=== PATIENT | female | born 1995 | race Caucasian/White ===

== ENCOUNTER 2017-01-13 22:41 | Emergency (ER) | payer OTHER ==
[~2017-01-13] VITALS: Wt 45.5 kg
[2017-01-14] MEDS ORDERED: KETOROLAC 30 MG INJ IV STA (00:14)
[2017-01-14] MEDS ORDERED: ONDANSETRON 4 MG INJ IV STA (00:14)
[2017-01-14] MEDS ORDERED: FAMOTIDINE 20 MG INJ IV STA (00:14)
[2017-01-14] MEDS ORDERED: SOD CHLORIDE 0.9% 1,000 ML IV STA (00:14)
[2017-01-14 00:42] LABS: URINE BLOOD (Dip) POC Negative (NEGATIVE)
[2017-01-14 00:54] LABS: ADD SCAN DIFF NO
[2017-01-14 00:56] LABS: ABNORMAL IP MESSAGE 1; HEMOGLOBIN 16.3 g/dl (12.0-16.0); MEAN CORPUSCULAR HEMOGLOBIN 29.2 pg (29.0-33.0); MEAN CORPUSCULAR VOLUME 85.9 fl (72.0-104.0); MEAN PLATELET VOLUME 10.9 fl (7.4-10.4); PLATELET COUNT 321 10^3/UL (140-415); RED BLOOD COUNT 5.59 10^6/ul (4.20-5.40); RED CELL DISTRIBUTION WIDTH 12.1 % (11.5-14.5); WHITE BLOOD COUNT 25.4 10^3/ul (4.8-10.8)
[2017-01-14 01:14] LABS: ALBUMIN 5.4 g/dl (3.3-4.9); ALBUMIN/GLOBULIN RATIO 1.22; BILIRUBIN,INDIRECT 1.8 mg/dl (0-1.1); BILIRUBIN,TOTAL 1.8 mg/dl (0.2-1.3); CALCIUM 10.4 mg/dl (8.4-10.2); CREATININE 0.8 mg/dl (0.44-1.00); POTASSIUM 4.1 mmol/L (3.5-5.1); TOTAL PROTEIN 9.8 g/dl (6.1-8.1)
--- NOTE | 2017-01-14 01:47 | RADRPT ---
PROCEDURE: Right upper quadrant abdominal ultrasound. CLINICAL INDICATION: Abdominal pain TECHNIQUE: Rodriguez scale and color doppler ultrasound images of the right upper quadrant. COMPARISON: None FINDINGS: Pancreas: Visualized portions appear of normal echogenicity, no focal lesions. Liver: Morphology: Normal in size and contour. Echogenicity: Normal. Focal lesions: None. Main portal vein: Patent with hepatopetal flow. Biliary System: Normal appearing gallbladder wall. No gallstones seen. No intrahepatic biliary dilatation. Common bile duct measures 2.0 mm in maximal dimension. Kidneys: Right 8.4 cm in length. Right renal cortical thickness is preserved. Normal echogenicity. No hydronephrosis. No renal calculi. No focal lesions. No free fluid identified. IMPRESSION: Normal gallbladder without gallstones. RPTAT: AADD .Jay King MD, MD Date Time Electronically viewed and signed by .Jay King MD, on 01/14/2017 01:47 .B/
[2017-01-14 02:00] LABS: LYMPHOCYTES # 0.8 10^3/ul (0.8-2.9); MONOCYTE # 0.5 10^3/ul (0.3-0.9); NEUTROPHIL # 23.9 10^3/ul (1.6-7.5)
--- NOTE | 2017-01-14 02:14 | ERD ---
ER Documentation Chief Complaint Date/Time DATE: 01/14/17 TIME: 02:12 Chief Complaint AP and vomiting today HPI This is a 21 year old female presents today with abdominal pain, nausea, vomiting and diarrhea. Patient states symptoms started around 6pm. Patient cannot tolerate anything by mouth and states when she attempts to drink anything , she vomits almost immediately. Patient is also having numerous loose brown stool. Denies fevers or chills. Patient states he had [employer] food for the first time yesterday and is unsure if this is the cause of her symptoms. No recent travel. ROS All systems reviewed and are negative except as per history of present illness. Medications Home Meds Active Scripts Ibuprofen* (Motrin*) 400 Mg Tab, 400 MG PO Q6, #20 TAB Prov:GAB AL NP 01/14/17 Ondansetron Hcl* (Zofran*) 4 Mg Tablet, 4 MG PO Q6H for NAUSEA AND/OR VOMITING, #10 TAB Prov:GAB AL NP 01/14/17 Diphenoxylate HCl/Atropine (Lomotil 2.5-0.025 mg Tablet) 1 Each Tablet, 1 TAB PO QID Y for DIARRHEA, #10 TAB Prov:GAB AL NP 01/14/17 Reported Medications [None] No Conflict Check 09/15/10 Allergies Allergies: Coded Allergies: No Known Allergies (Verified Allergy, Unknown, 01/14/17) PMhx/Soc Medical and Surgical Hx: pt denies Surgical Hx History of Surgery: No Anesthesia Reaction: No Hx Neurological Disorder: Yes (SEIZURES) Hx Respiratory Disorders: No Hx Cardiac Disorders: No Hx Psychiatric Problems: No Hx Miscellaneous Medical Probl: No Hx Alcohol Use: No Hx Substance Use: No Hx Tobacco Use: No Smoking Status: Never smoker Physical Exam Vitals Vital Signs Date Time Temp Pulse Resp B/P Pulse Ox O2 Delivery O2 Flow Rate FiO2 01/13/17 23:13 99.9 138 20 107/68 98 Physical Exam Const: alert, ill-appearing Head: Atraumatic Eyes: Normal Conjunctiva ENT: Normal External Ears, Nose and Mouth. Neck: Full range of motion..~ No meningismus. Resp: Clear to auscultation bilaterally Cardio: Regular rate and rhythm, no murmurs Abd: Soft, non distended. Normal bowel sounds. tenderness to epigastric region and right upper quadrant. Skin: No petechiae or rashes Back: No midline or flank tenderness Ext: No cyanosis, or edema Neur: Awake and alert Psych: Normal Mood and Affect Result Diagram: 01/14/17 0030 01/14/17 0030 Results 24 hrs Laboratory Tests Test 01/14/17 00:30 01/14/17 00:45 01/14/17 02:25 White Blood Count 25.410^3/ul Red Blood Count 5.5910^6/ul Hemoglobin 16.3g/dl Hematocrit 48.0% Mean Corpuscular Volume 85.9fl Mean Corpuscular Hemoglobin 29.2pg Mean Corpuscular Hemoglobin Concent 34.0g/dl Red Cell Distribution Width 12.1% Platelet Count 16442^3/UL Mean Platelet Volume 10.9fl Neutrophils % 94.0% Band Neutrophils % 1.0% Lymphocytes % 3.0% Monocytes % 2.0% Neutrophils # 23.910^3/ul Lymphocytes # 0.810^3/ul Monocytes # 0.510^3/ul Sodium Level 147mmol/L Potassium Level 4.1mmol/L Chloride Level 102mmol/L Carbon Dioxide Level 24mmol/L Anion Gap 25 Blood Urea Nitrogen 20mg/dl Creatinine 0.80mg/dl Glucose Level 126mg/dl Calcium Level 10.4mg/dl Total Bilirubin 1.8mg/dl Direct Bilirubin 0.00mg/dl Indirect Bilirubin 1.8mg/dl Aspartate Amino Transf (AST/SGOT) 22IU/L Alanine Aminotransferase (ALT/SGPT) 28IU/L Alkaline Phosphatase 89IU/L Total Protein 9.8g/dl Albumin 5.4g/dl Globulin 4.40g/dl Albumin/Globulin Ratio 1.22 Lipase 24U/L Bedside Urine pH (LAB) 5.5 Bedside Urine Protein (LAB) 1+ Bedside Urine Glucose (UA) Negative Bedside Urine Ketones (LAB) 1+ Bedside Urine Blood Negative Bedside Urine Nitrite (LAB) Negative Bedside Urine Leukocyte Esterase (L Negative Lactic Acid Level 1.3mmol/L Current Medications Medications (Trade) Dose Ordered Sig/Angie Route PRN Reason Start Time Stop Time Status Last Admin Dose Admin Sodium Chloride (NS) 1,000 ml @ 1,000 mls/hr Q1H STAT IV 01/14/17 00:14 01/14/17 01:13 DC 6/11/17 00:51 Ondansetron HCl (Zofran Inj) 4 mg ONCE STAT IV 01/14/17 00:14 01/14/17 00:18 DC 01/14/17 00:51 Famotidine (Pepcid Iv) 20 mg ONCE STAT IV 01/14/17 00:14 01/14/17 00:18 DC 01/14/17 00:50 Ketorolac Tromethamine (Toradol) 30 mg ONCE STAT IV 01/14/17 00:14 01/14/17 00:18 DC 01/14/17 00:51 Procedures/MDM DIAGNOSTIC IMAGING REPORT Patient: BILLY ZHONG : 1995 Age: 21 Sex: F MR #: [id number] DOS: 01/14/17 0014 Ordering MD: GAB AL NP Location: [facility] Room/Bed: PROCEDURE: Right upper quadrant abdominal ultrasound. CLINICAL INDICATION: Abdominal pain TECHNIQUE: Rodriguez scale and color doppler ultrasound images of the right upper quadrant. COMPARISON: None FINDINGS: Pancreas: Visualized portions appear of normal echogenicity, no focal lesions. Liver: Morphology: Normal in size and contour. Echogenicity: Normal. Focal lesions: None. Main portal vein: Patent with hepatopetal flow. Biliary System: Normal appearing gallbladder wall. No gallstones seen. No intrahepatic biliary dilatation. Common bile duct measures 2.0 mm in maximal dimension. Kidneys: Right 8.4 cm in length. Right renal cortical thickness is preserved. Normal echogenicity. No hydronephrosis. No renal calculi. No focal lesions. No free fluid identified. IMPRESSION: Normal gallbladder without gallstones. DIAGNOSTIC IMAGING REPORT Patient: BILLY ZHONG : 1995 Age: 21 Sex: F MR #: [id number] DOS: 01/14/17 0153 Ordering MD: GAB AL NP Location: [facility] Room/Bed: PROCEDURE: CT ABDOMEN/PELVIS WITHOUT CONTRAST CLINICAL INDICATION: 21-year-old female with abdominal pain. TECHNIQUE: The study was performed utilizing a [employer] 64-slice CT scanner. Direct axial sections were obtained through the abdomen and pelvis without the use of intravenous contrast material. Sagittal and coronal reformations were obtained. One or more of the following dose reduction techniques were utilized: automated exposure control, adjustment of the mA and/ or kV according to patient's size or use of iterative reconstruction technique. The images were reviewed on a PACS workstation. CTD/vol = 4.4 mGy; Total Exam DLP = 223.7 mGy-cm. COMPARISON: None. FINDINGS: The lung bases are unremarkable. There is no evidence for significant pleural effusion. The liver has a normal size and contour without focal areas of abnormal density. No intrahepatic nor extrahepatic biliary ductal dilatation is seen. The gallbladder demonstrates no wall thickening nor pericholecystic fluid. No biliary stones are evident. The pancreas is without areas of abnormal attenuation. The spleen is identified and has a normal size without abnormal density. The adrenal glands are unremarkable. The kidneys are without abnormal density. No hydroureteronephrosis nor nephroureterolithiasis is evident. The urinary bladder is decompressed. There is mild fluid identified throughout the small bowel and proximal colon without obstruction suggestive of an enteritis. The appendix is visualized and is without abnormal thickening or surrounding inflammatory reaction. The uterus is anteflexed. There is minimal pelvic free fluid. The aortoiliac vessels are without aneurysmal dilatation. The osseous structures are intact. IMPRESSION: 1. No CT evidence for obstructive uropathy or renal calculi. 2. Mild fluid identified throughout the small bowel and proximal colon without obstruction suggestive of an enteritis. 3. No CT evidence for appendicitis. 4. Minimal pelvic free fluid. MDM: 21 year old female presents to ER with epigastric abdominal pain, nausea, vomiting, diarrhea and elevated temperature starting today around 6pm. Upon arrival, patient's temp 99.9F and heart rate 138bpm. IV access obtained and patient given Toradol, Pepcid and Zofran. Initial labs show WBC 25.4 with neutrophilia. Urine is negative for infection. Lactic acid ordered. Gallbladder US reviewed by radiologist as normal gallbladder without gallstones. CT abdomen and pelvis ordered. CT abdomen and pelvis reviewed by radiologist as no CT evidence for obstructive uropathy or renal calculi. Mild fluid identified throughout the small bowel and proximal colon without obstruction suggestive of an enteritis. No CT evidence for appendicitis. Minimal pelvic free fluid. Upon reassessment, patient states pain has improved. No active vomiting or diarrhea while in the ED. Patient tolerating P.O. Consulted Dr. Freed regarding this patient and we agree that patient is appropriate for outpatient management. Low suspicion for acute surgical abdomen, obstruction, peritonitis, acute cholangitis, acute cholecystitis or pancreatitis. Differential diagnosis includes but not limited to viral gastroenteritis bacterial enteritis, IBD, IBS , GERD, gastritis and peptic ulcer disease. Patient is appropriate for outpatient management and will be given prescription for Lomotil, Zofran and ibuprofen. Patient can follow up with their PCP in 2-3 days. Patient instructed to return to ED sooner if pain worsens or is intolerable, high fever or new symptoms such as anorexia, not tolerating PO, severe diarrhea or chest pain. Patient verbalizes understanding. Departure Diagnosis: Primary Impression: Abdominal pain Abdominal location: generalized Qualified Code: R10.84 - Generalized abdominal pain Condition: Stable GAB AL NP Jan 14, 2017 02:14
--- NOTE | 2017-01-14 04:14 | RADRPT ---
PROCEDURE: CT ABDOMEN/PELVIS WITHOUT CONTRAST CLINICAL INDICATION: 21-year-old female with abdominal pain. TECHNIQUE: The study was performed utilizing a [employer] VCT 64-slice CT scanner. Direct axia l sections were obtained through the abdomen and pelvis without the use of intravenous contrast mate rial. Sagittal and coronal reformations were obtained. One or more of the following dose reduction t echniques were utilized: automated exposure control, adjustment of the mA and/or kV according to pat ient's size or use of iterative reconstruction technique. The images were reviewed on a PACS workst [employer]. CTD/vol = 4.4 mGy; Total Exam DLP = 223.7 mGy-cm. COMPARISON: None. FINDINGS: The lung bases are unremarkable. There is no evidence for significant pleural effusion. The liver has a normal size and contour without focal areas of abnormal density. No intrahepatic nor extrahepa tic biliary ductal dilatation is seen. The gallbladder demonstrates no wall thickening nor perichole cystic fluid. No biliary stones are evident. The pancreas is without areas of abnormal attenuation. The spleen is identified and has a normal size without abnormal density. The adrenal glands are unr emarkable. The kidneys are without abnormal density. No hydroureteronephrosis nor nephroureterolithi asis is evident. The urinary bladder is decompressed. There is mild fluid identified throughout the small bowel and proximal colon without obstruction suggestive of an enteritis. The appendix is visua lized and is without abnormal thickening or surrounding inflammatory reaction. The uterus is antefle xed. There is minimal pelvic free fluid. The aortoiliac vessels are without aneurysmal dilatation. The osseous structures are intact. IMPRESSION: 1. No CT evidence for obstructive uropathy or renal calculi. 2. Mild fluid identified throughout the small bowel and proximal colon without obstruction suggesti ve of an enteritis. 3. No CT evidence for appendicitis. 4. Minimal pelvic free fluid. .Lenin Burciaga MD, Date Time Electronically viewed and signed by .Lenin Burciaga MD, MD on 01/14/2017 04:14 .Ulises/
[2017-01-14] MEDS ORDERED: ONDA4TAB8 PO (04:47)
[2017-01-14] MEDS ORDERED: DIPH1TAB PO (04:47)
[2017-01-14] MEDS ORDERED: IBUP400T22 PO (04:47)
== END 2017-01-14 04:59 | disposition home or self-care (01) ==
LOC: FTE 22:41
DX: R10.84 Generalized abdominal pain (principal); R11.2 Nausea with vomiting, unspecified; R10.2 Pelvic and perineal pain
CPT/HCPCS: 36415; 74176; 76705; 80053; 81003; 83605; 83690; 85025; 96374; 96375; J1885; J2405; J7030; Z7502; Z7610

== ENCOUNTER 2018-05-21 09:38 | Emergency (ER) | END 2018-05-21 12:45 | disposition home or self-care (01) ==

== ENCOUNTER 2018-12-06 15:11 | Emergency (ER) | payer SELFPAY ==
[~2018-12-06] VITALS: Ht 154.9 cm; Wt 52.0 kg
[~2018-12-06 15:11] MED LIST: CEPH-443 PO; DIPH1TAB PO; IBUP-1542 PO; IBUP-1561 PO; ONDA4TAB8 PO
[2018-12-06 15:31] VITALS: BP 113/58; PULSE 78; RESP 18; Ht 154.9 cm; Wt 52.0 kg
== END 2018-12-06 18:36 | disposition left against medical advice (07) ==
LOC: FTE 15:11
DX: Z53.21 Procedure and treatment not carried out due to patient leaving prior to being seen by health care provider (principal)

== ENCOUNTER 2019-04-09 11:39 | Emergency (ER) | payer OTHER ==
[~2019-04-09] VITALS: Ht 149.9 cm; Wt 45.0 kg
[2019-04-09 12:20] VITALS: BP 112/64; PULSE 64; RESP 18; Ht 149.9 cm; Wt 45.0 kg
== END 2019-04-09 13:18 | disposition home or self-care (01) ==
LOC: E/R 11:39
DX: R00.2 Palpitations (principal)
CPT/HCPCS: 93005; Z7502